=== PATIENT | male | born 1990 | race Caucasian/White ===

== ENCOUNTER → 2019-07-18 | Outpatient (CLI) | payer OTHER ==
--- NOTE | 2019-07-18 17:27 | PCVCIMAG ---
APPROVED REPORT Indications Amaurosis Fugax Doppler Spectral Velocity Analysis PSV / EDVPSV / EDV ECA (R) 130 / 18 cm/sECA (L) 115 / 13 cm/s dICA (R) 83 / 33 cm/sdICA (L) 78 / 36 cm/s Herve (R) 95 / 28 cm/smICA (L) 80 / 29 cm/s pICA (R) 89 / 20 cm/spICA (L) 91 / 25 cm/s Bulb (R) 127 / 23 cm/sBulb (L) 118 / 19 cm/s dCCA (R) 136 / 23 cm/sdCCA (L) 129 / 23 cm/s mCCA (R) 133 / 23 cm/smCCA (L) 142 / 23 cm/s Vert (R) 83 / 24 cm/sVert (L) 75 / 9 cm/s ICA/CCA 0.70ICA/CCA 0.71 Basic Measurements Blood Pressure: Pulses: Right Left RightLeft Brachial(Sitting) 122/07lcQt516/80mmHgTemporal Real Time B-Mode Imaging Vert. (R)AntegradeVert. (L)Antegrade Findings The right carotid bulb has no significant plaque. The right proximal internal carotid artery shows no significant stenosis. The right common carotid artery shows no significant stenosis. The right external carotid artery shows no significant stenosis. The left carotid bulb has no significant plaque. The left proximal internal carotid artery shows no significant stenosis. The left common carotid artery shows no significant stenosis. The left external carotid artery shows no significant stenosis. Conclusion 1. Normal bilateral carotid duplex scanning 2. Antegrade vertebral flow.
--- NOTE | 2019-07-19 09:25 | PCVCIMAG ---
APPROVED REPORT Study performed: 07/18/2019 15:05:58 EXAM: Comprehensive 2D, Doppler, and color-flow Echocardiogram Patient Location: Echo lab Status: routine BSA: 2.16 HR: 60 bpmBP: 138/80 mmHg Rhythm: NSR Other Information Study Quality: Excellent Indications Bicuspid Aortic Valve. Amaurosis Fugax left eye, Coarctation of aorta. 2D Dimensions IVSd: 11.47 (7-11mm)LVOT Diam: 24.16 (18-24mm) LVDd: 56.82 mm PWd: 9.50 (7-11mm)Ascending Ao: 33.93 (22-36mm) LVDs: 43.49 (25-40mm) Left Atrium: 34.14 (27-40mm) Aortic Root: 29.38 mm LV Single Plane 4CH: 42.63 % LV Single Plane 2CH: 47.33 % Biplane EF: 45.6 % Volumes Left Atrial Volume (Systole) Single Plane 4CH: 34.63 mLSingle Plane 2CH: 31.12 mL LA ESV Index: 16.00 mL/m2 Aortic Valve AoV Peak Maximiliano.: 1.71 m/s AO Peak Gr.: 13.05 mmHgLVOT Max P.70 mmHg AO Mean Gr.: 6.59 mmHg AO V2 Mean: 1.25 m/sLVOT Max V: 0.96 m/s AO V2 VTI: 36.23 cm ALBERT Vmax: 2.58 cm2 AI Vmax: 3.54 m/s AI [place]: 0.87 m/s2 AI PHT: 1335.19 ms Mitral Valve E/A Ratio: 1.5 MV Decel. Time: 247.42 ms MV E Max Maximiliano.: 1.17 m/s MV A Maximiliano.: 0.77 m/s IVRT: 103.81 ms TDI E/Lateral E': 7.31E/Medial E': 9.00 Medial E' Maximiliano.: 0.13 m/s Lateral E' Maximiliano.: 0.16 m/s Pulmonary Vein P Vein S: 0.40 m/sP Vein A: 0.55 m/s P Vein D: 0.71 m/sP Vein A Dur.: 131.5 msec P Vein S/D Ratio: 0.56 Tricuspid Valve TR Peak Maximiliano.: 2.05 m/s TR Peak Gr.: 16.85 mmHg Left Ventricle The left ventricle is normal size. There is normal LV segmental wall motion. There is normal left ventricular wall thickness. Left ventricular systolic function is normal. The left ventricular ejection fraction is within the normal range. LVEF is 60-65%. The left ventricular diastolic function is normal. Right Ventricle The right ventricle is normal size. The right ventricular systolic function is normal. Atria The left atrium size is normal. The right atrium size is normal. Aortic Valve Biscupid aortic valve. Mild aortic regurgitation. There is no aortic valvular stenosis. Mitral Valve The mitral valve is normal in structure. There is no mitral valve regurgitation noted. No evidence of mitral valve stenosis. Tricuspid Valve The tricuspid valve is normal in structure. Trace tricuspid regurgitation. Pulmonic Valve The pulmonary valve is normal in structure. There is no pulmonic valvular regurgitation. Great Vessels The aortic root is normal in size. The ascending aorta is normal in size. Aortic coarctation repaired site with 15 mmHg peak gradient, mean 7.84mmHg similar to previous studies. IVC is normal in size and collapses >50% with inspiration. Pericardium There is no pericardial effusion. <Conclusion> Left ventricular systolic function is normal. There is normal LV segmental wall motion. LVEF is 60-65%. Normal diastolic function Biscupid aortic valve. Mild aortic regurgitation, no stenosis. The mitral valve is normal in structure. No mitral valve regurgitation. The ascending aorta is normal in size. Aortic coarctation repaired site with a mild gradient (2m/sec), similar to previous studies. There is no pericardial effusion.
== END | disposition home or self-care (01) ==
LOC: PCVCIMAG 14:31
PROVIDERS: ATTEND Internal Medicine
DX: I35.1 Nonrheumatic aortic (valve) insufficiency (principal); G45.3 Amaurosis fugax; Q25.1 Coarctation of aorta
CPT/HCPCS: 93306; 93880